=== PATIENT | male | born 1980 | race Caucasian/White ===

== ENCOUNTER 2016-11-01 09:05 | Outpatient (CLI) | payer BC, OTHER ==
[2016-11-02 11:02] LABS: TEST RESULT REPORT (())
== END 2016-11-01 09:06 | disposition home or self-care (01) ==
LOC: LAB.WCP 09:05
PROVIDERS: ATTEND Family Medicine
DX: Z20.2 Contact with and (suspected) exposure to infections with a predominantly sexual mode of transmission (principal)
CPT/HCPCS: 36415; 81599; 86592; 86695; 86696; 86803; 87389; 87491; 87591

== ENCOUNTER 2017-06-27 10:20 | Outpatient (CLI) | payer OTHER ==
--- NOTE | 2017-06-27 15:41 | MRI Report ---
EXAM MRA BRAIN EXAM DATE: 06/27/2017 11:13 AM. CLINICAL HISTORY: HEADACHE.. COMPARISON: None. TECHNIQUE: Multiplanar, multisequence MRA sequences of the brain were performed. Other: None. Post-pr ocessing: Multiplanar 3D MIP reconstructions. IV Contrast: None. FINDINGS: RIGHT Internal Carotid (ICA): No aneurysm, stenosis or anomaly. Middle Cerebral (MCA): No aneurysm, stenosis or anomaly. Anterior Cerebral (MARIELY): No aneurysm, stenosis or anomaly. Posterior Cerebral (DOG SITTER): The P1 segment of the right DOG SITTER small, the right DOG SITTER is primarily supplied by the right posterior communicating artery Posterior Communicating (P-COM): There is 60-70 % narrowing distal right posterior communicating tremaine ry (series 402 image 3), the artery remains patent Vertebral: No aneurysm, stenosis or anomaly in the visualized upper vertebral artery. LEFT Internal Carotid (ICA): No aneurysm, stenosis or anomaly. Middle Cerebral (MCA): No aneurysm, stenosis or anomaly. Anterior Cerebral (MARIELY): No aneurysm, stenosis or anomaly. Posterior Cerebral (DOG SITTER): No aneurysm, stenosis or anomaly. Posterior Communicating (P-COM): Diminutive, likely hypoplastic Vertebral: No aneurysm, stenosis or anomaly in the visualized upper vertebral artery. MIDLINE Anterior Communicating (A-COM): No aneurysm, stenosis or anomaly. Basilar Artery:No aneurysm, stenosis or anomaly. Other: None. IMPRESSION: 1. Approximately 60-70 % narrowing distal right posterior communicating artery (series 402 image 3), the artery remains patent. This is nonspecific, could represent vasculitis. 2. No MRA evidence of other hemodynamically significant stenosis, dissection, occlusion, aneurysm, or vascular malformation within the intracranial arteries. [facility] The above findings were discussed with SUSY Estrada by Dr. Ibrahima Bryant at 15:39 hrs o n 06/27/17. Referring Provider Line: [phone] SITE ID: [id number]
== END 2017-06-27 10:21 | disposition home or self-care (01) ==
LOC: DI 10:20
PROVIDERS: ATTEND Physician Assistant Medical
DX: I65.8 Occlusion and stenosis of other precerebral arteries (principal)
CPT/HCPCS: 70544

== ENCOUNTER 2018-07-30 10:43 | Outpatient (CLI) | payer OTHER ==
--- NOTE | 2018-07-31 17:02 | XRAY Report ---
Reason: METACARPOPHALANGEAL JOINT PAIN Procedure Date: 07/30/2018 Accession Number: [id number] / [id number] Procedure: WCP - Hand 3 View RT CPT Code: FULL RESULT: EXAM: RIGHT HAND RADIOGRAPHY EXAM DATE: 07/30/2018 10:52 AM. CLINICAL HISTORY: Metacarpophalangeal joint pain. Fall onto right hand, thumb; pain. COMPARISON: HAND 3 VIEW RT 09/28/2012 1:42 AM. TECHNIQUE: 3 views. FINDINGS: Bones: Normal. No fractures or bone lesions. Joints: Normal. No subluxations. Soft Tissues: Normal. No soft tissue swelling. IMPRESSION: Normal hand radiography. [facility]
== END 2018-07-30 10:44 | disposition home or self-care (01) ==
LOC: DI.WCP 10:43
PROVIDERS: ATTEND Physician Assistant
DX: M79.641 Pain in right hand (principal)

== ENCOUNTER → 2018-07-30 | Outpatient (CLI) | payer OTHER | LOC: LAB 08:00 | PROVIDERS: ATTEND Physician Assistant | DX: K13.0 Diseases of lips (principal) | CPT/HCPCS: 87070; 87075; 87147; 87186; 87205 ==

== ENCOUNTER 2018-12-11 02:25 | Outpatient (CLI) | payer OTHER | END 2018-12-11 02:26 | disposition home or self-care (01) | LOC: LAB 02:25 | PROVIDERS: ATTEND Pathology Blood Banking & Transfusion Medicine | DX: Z01.89 Encounter for other specified special examinations (principal) | CPT/HCPCS: 36415 ==

== ENCOUNTER 2021-12-15 13:04 | Outpatient (CLI) | payer SELFPAY ==
--- NOTE | 2021-12-15 15:36 | XRAY Report ---
PROCEDURE: Hand 3 View LT INDICATIONS: LEFT THUMB PAIN TECHNIQUE: 3 views of the hand(s) acquired. COMPARISON: None. FINDINGS: Bones: No fractures or dislocations. Minimal degenerative change. No suspicious bony lesions. Soft tissues: No suspicious soft tissue calcifications. IMPRESSION: No fracture or dislocation. Reviewed by: Isra Silva MD on 12/15/2021 3:35 PM PDT Approved by: Isra Silva MD on 12/15/2021 3:35 PM PDT Station ID: [id number]
--- NOTE | 2021-12-15 16:27 | XRAY Report ---
PROCEDURE: Ribs w/PA Chest LT INDICATIONS: LEFT RIB PAIN TECHNIQUE: 2 views of the left ribs were acquired, along with a single view chest. COMPARISON: None FINDINGS: Surgical changes and devices: None. Bones and chest wall: No fractures or dislocations. No suspicious bony lesions. Overlying soft tis sues appear unremarkable. Lungs and pleura: No pleural effusions or pneumothorax. Lungs appear clear. Mediastinum: Mediastinal contours appear normal. Heart size is normal. IMPRESSION: No evidence of displaced left rib fracture. No evidence of acute pulmonary process. Reviewed by: Jules Iglesias MD on 12/15/2021 4:25 PM PDT Approved by: Jules Iglesias MD on 12/15/2021 4:25 PM PDT Station ID: [id number]
== END 2021-12-15 23:59 | disposition home or self-care (01) ==
LOC: DI.N 13:04
PROVIDERS: ATTEND Registered Nurse
DX: M79.645 Pain in left finger(s) (principal); M79.642 Pain in left hand; R07.81 Pleurodynia